=== PATIENT | male | born 1980 | race Two or more races ===

== ENCOUNTER → 2019-06-23 | Emergency (ER) | payer MEDICAID ==
[~2019-06-23] VITALS: Ht 177.8 cm; Wt 103.0 kg
[~2019-06-23] MED LIST: BUPIVACAINE 0.25% ONE; BUPIVACAINE/PF-EPI 0.25% 1:200K SQ ONE; LIDOCAINE 1%-EPI 1:100K, 20ML ONE; LIDOCAINE 1%-EPI 1:100K, 20ML SQ ONE; NEOSPORIN OINT. PKT 1 PACKET ONE
[2019-06-23 11:34] VITALS: BP 125/85
--- NOTE | 2019-06-23 12:50 | NUR ---
RN to bedside, finished clinical screen. RN provided midlevel provider ordered medications. EMT has rinsed wound, provider at bedside now completing sutures. Awaiting dressing and disposition.
== END ==
LOC: ED 13:29
DX: S61.411A Laceration without foreign body of right hand, initial encounter (principal); W45.8XXA Other foreign body or object entering through skin, initial encounter; Y93.89 Activity, other specified; Y92.098 Other place in other non-institutional residence as the place of occurrence of the external cause; Y99.8 Other external cause status
CPT/HCPCS: 12042; 99284